=== PATIENT | female | born 1955 | race Caucasian/White ===

== ENCOUNTER 2018-01-01 06:12 | Day surgery (SDC) | payer OTHER ==
[2018-01-01] MEDS ORDERED: LIDOCAINE 2% (SDV) 5 ML INJ (07:43)
[2018-01-01] MEDS ORDERED: PROPOFOL 60 ML (07:43)
== END 2018-01-02 08:49 | disposition home or self-care (01) ==
LOC: GIL 06:12
DX: K92.1 Melena (principal); K57.90 Diverticulosis of intestine, part unspecified, without perforation or abscess without bleeding; K64.4 Residual hemorrhoidal skin tags; K64.8 Other hemorrhoids; K21.0 Gastro-esophageal reflux disease with esophagitis; I10 Essential (primary) hypertension; E11.9 Type 2 diabetes mellitus without complications
CPT/HCPCS: 43239; 82962; 88305; 88312

== ENCOUNTER 2018-01-13 08:32 | Day surgery (SDC) | payer OTHER ==
[2018-01-13] MEDS ORDERED: TIMOLOL 0.5% 5 ML OPH (09:00)
[2018-01-13] MEDS ORDERED: SODIUM BICARBONATE (IV ADD) 50 ML (09:00)
[2018-01-13] MEDS ORDERED: EPINEPHrine 1 MG INJ (09:00)
[2018-01-13] MEDS ORDERED: BUPIVACAINE 0.75% (MPF) 10 ML INJ (09:00)
[2018-01-13] MEDS ORDERED: LIDOCAINE 2% (SDV) 5 ML INJ ×2 (09:02→11:28)
[2018-01-13] MEDS: CYCLOPENTOLATE 2% 2 ML OPH OPER (09:19)
[2018-01-13] MEDS: NEPAFENAC 0.1% 3 ML OPH OPER (09:20)
[2018-01-13] MEDS: PHENYLephrine 10% 5 ML OPH OPER (09:20)
[2018-01-13] MEDS: MOXIFLOXACIN 0.5% 3 ML OPH OPER (09:20)
[2018-01-13] MEDS ORDERED: PROPOFOL 20 ML (11:28)
[2018-01-13] MEDS ORDERED: FENTAnyl 50 MCG/ML VIAL ×2 (11:29→13:00)
[2018-01-13] MEDS ORDERED: ONDANSETRON 4 MG INJ (11:29)
[2018-01-13] MEDS: CARBACHOL 0.01% 1.5 ML OPH INJ (12:30)
[2018-01-13] MEDS: LIDOCAINE 1% (MPF) 10 ML INJ (12:31)
[2018-01-13] MEDS ORDERED: ONDANSETRON 4 MG INJ IV (13:00)
[2018-01-13] MEDS: FENTAnyl 50 MCG/ML VIAL IV ×2 (13:03→13:14)
[2018-01-13] MEDS: HYDROCODONE/APAP (5/325) TAB PO (14:29)
== END 2018-01-13 15:35 | disposition home or self-care (01) ==
LOC: SDS 08:32
DX: H25.12 Age-related nuclear cataract, left eye (principal); I10 Essential (primary) hypertension; E11.9 Type 2 diabetes mellitus without complications; E78.5 Hyperlipidemia, unspecified
CPT/HCPCS: 66984; 82962